=== PATIENT | male | born 1985 | race Caucasian/White ===

== ENCOUNTER 2016-10-11 17:07 | Emergency (ER) | payer BC ==
[2016-10-11 17:31] VITALS: BP 173/99
[2016-10-11] MEDS ORDERED: Ketorolac 30 MG/ML SDV IVPUSH ONE (17:36)
[2016-10-11] MEDS ORDERED: Pantoprazole 40 MG Vial IVPUSH ONE (17:38)
[2016-10-11] MEDS ORDERED: Ketorolac 60 MG/2 ML SDV IM ONE (19:40)
[2016-10-11] MEDS ORDERED: Pantoprazole 40 MG Tab.CR ONE (19:43)
--- NOTE | 2016-10-11 19:49 | EDM.PDOC ---
ED HISTORY OF PRESENT ILLNESS - General Chief Complaint: Chest Pain Stated Complaint: CHEST PAIN Time Seen by Provider: 10/11/16 17:15 Source: Reports: Patient History Limitations: Reports: No limitations - History of Present Illness INITIAL COMMENTS - FREE TEXT/NARRATIVE: 31 YEARS OLD W Miroslava CAME TO THE ED due to pain at his left ant chest wall when taking a deep breath or when trning his upper body against his lower body. 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 No N/V/D or other medical issues. Symptom Onset Date: 10/03/16 Symptom Onset Time: 05:00 Timing/Duration: Reports: Hour(s):, Intermittent Severity: moderate Location, General: Reports: chest Quality: Reports: Dull Improves with: Reports: Rest Worsens with: Reports: Movement Associated Symptoms: Reports: denies other symptoms - Related Data Allergies/ADRs: Allergies Allergy/AdvReac Type Severity Reaction Status Date / Time No Known Allergies Allergy Verified 01/16/16 00:54 Home Meds: Home Meds Penicillin V Potassium 250 mg PO DAILY 02/06/16 [History] metroNIDAZOLE [Flagyl] 500 mg PO ONETIME 02/06/16 [History] oxyCODONE HCl/Acetaminophen [Percocet 7.5-325 mg Tablet] 1 each PO Q4HR PRN #16 tablet 02/06/16 [Rx] Famotidine [Pepcid] 40 mg PO DAILY #20 tablet 10/11/16 [Rx] Past Medical History - Past Health History Medical/Surgical History: Denies Medical/Surgical History HEENT History: Reports: Other (see below) Other HEENT History: prosthetic L eye Social & Family History - Tobacco Use Smoking Status *Q: Current Every Day Smoker Years of Tobacco use: 15 Packs/Tins Daily: 1 Second Hand Smoke Exposure: Yes - Alcohol Use Days Per Week of Alcohol Use: 3 Number of Drinks Per Day: 3 Total Drinks Per Week: 9 - Recreational Drug Use Recreational Drug Use: No Drug Use in Last 12 Months: No Recreational Drug Type: ED ROS GENERAL - Review of Systems Review Of Systems: See Below Constitutional: Reports: no symptoms HEENT: Reports: No symptoms Respiratory: Reports: No Symptoms Cardiovascular: Reports: No symptoms Endocrine: Reports: no symptoms GI/Abdominal: Reports: Other (epigastric tenderness) : Reports: no symptoms Musculoskeletal: Reports: no symptoms Skin: Reports: no symptoms Neurological: Reports: No Symptoms Psychiatric: Reports: No symptoms Hematologic/Lymphatic: Reports: no symptoms Immunologic: Reports: no symptoms ED EXAM, GENERAL - Physical Exam Exam: See Below Exam Limited By: No limitations General Appearance: alert, WD/WN, mild distress Eye Exam: bilateral eye: normal inspection Ears: normal external exam Ear Exam: bilateral ear: auricle normal Nose: normal inspection, normal mucosa Throat/Mouth: Normal inspection, Normal teeth, Other (poor dentition) Head: atraumatic, normocephalic Neck: normal inspection, supple Respiratory/Chest: no respiratory distress, lungs clear, normal breath sounds, other (tender chst wall) Cardiovascular: normal peripheral pulses, regular rate, rhythm, no edema, no gallop, no JVD, no murmur, no rub Peripheral Pulses: 1+: femoral (L), femoral (R) GI/Abdominal: normal bowel sounds, tender (epigastric) (Male) Exam: Deferred Rectal (Males) Exam: Deferred Back Exam: normal inspection, full range of motion Extremities: normal inspection, normal range of motion, non-tender, no pedal edema Neurological: alert, oriented, CN II-XII intact, normal cognition, normal gait Psychiatric: normal affect, normal mood Skin Exam: Warm, Dry, Intact, Normal color, No rash Lymphatic: no adenopathy EKG INTERPRETATION EKG Date: 10/11/16 Time: 17:20 Rhythm: NSR Rate (beats/min): 71 [place]: normal P-wave: present QRS: normal ST-T: normal QT: normal Comparison: NA - no prior EKG Course - Vital Signs Text/Narrative:: 31 YEARS OLD W Miroslava CAME TO THE ED due to pain at his left ant chest wall when taking a deep breath or when trning his upper body against his lower body. 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 No N/V/D or other medical issues. PE: R chest wall tenderness Imaging: CXR NAD, official report is pending Impression: Pleurisy, gastritis. Tx: Toradol 60 mg I.M. Protronix Reexam: Improved Plan: D/C with instructions. Last Recorded V/S: Last Vital Signs Temp 36.7 C 10/11/16 17:15 Pulse 84 10/11/16 17:15 Resp 18 10/11/16 17:15 BP 173/99 H 10/11/16 17:15 Pulse Ox 99 10/11/16 17:15 - Orders/Labs/Meds Orders: Active Orders 24 hr Category Date Time Status Chest 2V [CR] Stat Exams 10/11/16 17:36 Taken Pantoprazole [ProTONIX] Med 10/12/16 19:40 Once 40 mg PO ONETIME ONE Blood Pressure [OM.PC] Routine Oth 10/11/16 20:00 Ordered Medication Orders Pantoprazole Sodium (Protonix) 40 mg PO ONETIME ONE Stop: 10/12/16 19:41 Last Admin: 10/11/16 19:47 Dose: 40 mg Labs: Laboratory Tests 10/11/16 10/11/16 10/11/16 Range/Units 17:50 17:50 18:05 WBC 7.4 (4.5-12.0) X10-3/uL RBC 5.11 (4.30-5.75) x10(6)uL Hgb 16.1 H (11.5-15.5) g/dL Hct 47.3 (30.0-51.3) % MCV 92.5 (80-96) fL MCH 31.4 (27.7-33.6) pg MCHC 34.0 (32.2-35.4) g/dL RDW 12.3 (11.5-15.5) % Plt Count 283 (125-369) X10(3)uL MPV 8.3 (7.4-10.4) fL Neut % (Auto) 76.9 (46-82) % Lymph % (Auto) 15.5 (13-37) % Elbert % (Auto) 5.2 (4-12) % Eos % (Auto) 2 (1.0-5.0) % Baso % (Auto) 1 (0-2) % Neut # (Auto) 5.7 (1.6-8.3) # Lymph # (Auto) 1.2 (0.6-5.0) # Elbert # (Auto) 0.4 (0.0-1.3) # Eos # (Auto) 0.1 (0.0-0.8) # Baso # (Auto) 0.0 (0.0-0.2) # Sodium 138 (135-145) mmol/L Potassium 3.6 (3.5-5.3) mmol/L Chloride 104 (100-110) mmol/L Carbon Dioxide 27 (23-29) mmol/L BUN 14 (5-20) mg/dL Creatinine 0.7 (0.6-1.3) mg/dL Est Cr Clr Drug Dosing 169.37 mL/min Estimated GFR (MDRD) > 60 (>60) BUN/Creatinine Ratio 20.0 (9-20) Glucose 156 H (80-116) mg/dL Calcium 9.3 (8.6-10.2) mg/dL Urine Color (YELLOW) Urine Appearance (CLEAR) Urine pH (5.0-6.5) Ur Specific [place] (1.010-1.025) Urine Protein (NEGATIVE) mg/dL Urine Glucose (UA) (NEGATIVE) mg/dL Urine Ketones (NEGATIVE) mg/dL Urine Occult Blood (NEGATIVE) Urine Nitrite (NEGATIVE) Urine Bilirubin (NEGATIVE) Urine Urobilinogen (NEGATIVE) mg/dL Ur Leukocyte Esterase (NEGATIVE) Urine RBC (0) Urine WBC (0) Ur Squamous Epith Cells (NS,R,O) Urine Bacteria (NS) Urine Mucus (NS) Urine Opiates Screen Negative (NEGATIVE) Ur Oxycodone Screen Negative (NEGATIVE) Ur Propoxyphene Screen Negative (NEGATIVE) Ur Barbituates Screen Negative (NEGATIVE) Ur Tricyclics Screen Negative (NEGATIVE) Ur Phencyclidine Scrn Negative (NEGATIVE) Ur Amphetamine Screen Negative (NEGATIVE) Urine MDMA Screen Negative (NEGATIVE) U Benzodiazepines Scrn Negative (NEGATIVE) U Cocaine Metab Screen Negative (NEGATIVE) U Marijuana (THC) Screen Negative (NEGATIVE) 10/11/16 Range/Units 18:05 WBC (4.5-12.0) X10-3/uL RBC (4.30-5.75) x10(6)uL Hgb (11.5-15.5) g/dL Hct (30.0-51.3) % MCV (80-96) fL MCH (27.7-33.6) pg MCHC (32.2-35.4) g/dL RDW (11.5-15.5) % Plt Count (125-369) X10(3)uL MPV (7.4-10.4) fL Neut % (Auto) (46-82) % Lymph % (Auto) (13-37) % Elbert % (Auto) (4-12) % Eos % (Auto) (1.0-5.0) % Baso % (Auto) (0-2) % Neut # (Auto) (1.6-8.3) # Lymph # (Auto) (0.6-5.0) # Elbert # (Auto) (0.0-1.3) # Eos # (Auto) (0.0-0.8) # Baso # (Auto) (0.0-0.2) # Sodium (135-145) mmol/L Potassium (3.5-5.3) mmol/L Chloride (100-110) mmol/L Carbon Dioxide (23-29) mmol/L BUN (5-20) mg/dL Creatinine (0.6-1.3) mg/dL Est Cr Clr Drug Dosing mL/min Estimated GFR (MDRD) (>60) BUN/Creatinine Ratio (9-20) Glucose (80-116) mg/dL Calcium (8.6-10.2) mg/dL Urine Color Yellow (YELLOW) Urine Appearance Clear (CLEAR) Urine pH 6.0 (5.0-6.5) Ur Specific [place] 1.025 (1.010-1.025) Urine Protein Negative (NEGATIVE) mg/dL Urine Glucose (UA) Normal (NEGATIVE) mg/dL Urine Ketones 15 H (NEGATIVE) mg/dL Urine Occult Blood Negative (NEGATIVE) Urine Nitrite Negative (NEGATIVE) Urine Bilirubin Small H (NEGATIVE) Urine Urobilinogen 1 H (NEGATIVE) mg/dL Ur Leukocyte Esterase Negative (NEGATIVE) Urine RBC 0-5 (0) Urine WBC 0-5 (0) Ur Squamous Epith Cells Rare (NS,R,O) Urine Bacteria Rare H (NS) Urine Mucus Many H (NS) Urine Opiates Screen (NEGATIVE) Ur Oxycodone Screen (NEGATIVE) Ur Propoxyphene Screen (NEGATIVE) Ur Barbituates Screen (NEGATIVE) Ur Tricyclics Screen (NEGATIVE) Ur Phencyclidine Scrn (NEGATIVE) Ur Amphetamine Screen (NEGATIVE) Urine MDMA Screen (NEGATIVE) U Benzodiazepines Scrn (NEGATIVE) U Cocaine Metab Screen (NEGATIVE) U Marijuana (THC) Screen (NEGATIVE) Meds: Medications Generic Name Dose Route Start Last Admin Trade Name Freq PRN Reason Stop Dose Admin Pantoprazole Sodium 40 mg 10/12/16 19:40 10/11/16 19:47 Protonix PO 10/12/16 19:41 40 mg ONETIME ONE Administration Discontinued Medications Generic Name Dose Route Start Last Admin Trade Name Kadeem PRN Reason Stop Dose Admin Ketorolac Tromethamine 30 mg 10/11/16 17:36 10/11/16 19:45 Toradol IVPUSH 10/11/16 17:37 Not Given ONETIME ONE Ketorolac Tromethamine 60 mg 10/11/16 19:40 10/11/16 19:46 Toradol IM 10/11/16 19:41 60 mg ONETIME ONE Administration Pantoprazole Sodium 40 mg 10/11/16 17:38 10/11/16 19:45 Protonix Iv IVPUSH 10/11/16 17:39 Not Given ONETIME ONE Pantoprazole Sodium Confirm 10/11/16 19:43 Protonix Administered 10/11/16 19:44 Dose 40 mg .ROUTE .STK-MED ONE Departure - Departure Time of Disposition: 19:57 Disposition: Home, Self-Care 01 Condition: good Clinical Impression: Pleurisy without effusion Gastritis Qualifiers: Gastritis type: unspecified gastritis Chronicity: unspecified Gastritis bleeding: without bleeding Qualified Code(s): K29.70 - Gastritis, unspecified, without bleeding Prescriptions: Famotidine [Pepcid] 40 mg PO DAILY #20 tablet Referrals: Surinder Burkett MD [Primary Care Provider] - Forms: ED Department Discharge Additional Instructions: Please take Motrin with food, pepcid as recommended. Please f/u, come back if your symptoms get worse acutely. - My Orders Last 24 Hours: My Active Orders 10/11/16 17:36 Chest 2V [CR] Stat 10/11/16 20:00 Blood Pressure [OM.PC] Routine 10/12/16 19:40 Pantoprazole [ProTONIX] 40 mg PO ONETIME ONE - Assessment/Plan Last 24 Hours: My Active Orders 10/11/16 17:36 Chest 2V [CR] Stat 10/11/16 20:00 Blood Pressure [OM.PC] Routine 10/12/16 19:40 Pantoprazole [ProTONIX] 40 mg PO ONETIME ONE
--- NOTE | 2016-10-12 11:51 | CR ---
INDICATION: Chest pain. CHEST: Two PA views and a lateral view of the chest 10/11/2016 were compared with 08/13/2011, revealing the heart, mediastinum, and bony thorax to be unremarkable, except to note a minimal dextroconcave scoliosis of the lower middle thoracic spine. The diaphragm leaves are again noted to be slightly flattened on the lateral view, raising question of a degree of obstructive airway disease. The heart size and shape appears to be normal. An active infiltrate or effusion was not seen. Overlying snaps are noted. IMPRESSION: 1. No acute process. 2. Minimal scoliosis. 3. Correlate clinically as to the possibility of obstructive airway disease. MTDD
[2016-10-12] MEDS ORDERED: Pantoprazole 40 MG Tab.CR PO ONE (19:40)
== END 2016-10-11 20:20 | disposition home or self-care (01) ==
LOC: FB.ED 17:07
DX: R09.1 Pleurisy (principal); K29.70 Gastritis, unspecified, without bleeding; Z97.0 Presence of artificial eye; Z79.2 Long term (current) use of antibiotics; Z79.899 Other long term (current) drug therapy; F17.210 Nicotine dependence, cigarettes, uncomplicated
CPT/HCPCS: 36415; 71020; 80048; 80305; 81001; 85025; 96372; 99285; A9270; J1885

== ENCOUNTER 2016-11-03 15:52 | Emergency (ER) | payer BC ==
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
[2016-11-03 16:29] VITALS: BP 138/89
== END 2016-11-03 16:25 | disposition home or self-care (01) ==
LOC: FB.ED 15:52
DX: K02.9 Dental caries, unspecified (principal); F17.210 Nicotine dependence, cigarettes, uncomplicated
CPT/HCPCS: 99282

== ENCOUNTER 2017-02-09 23:13 | Emergency (ER) | payer BC ==
[2017-02-09] MEDS ORDERED: Acetaminophen/oxyCODONE 325-5 MG Tab PO ONE (23:32)
[2017-02-09] MEDS ORDERED: Ketorolac 60 MG/2 ML SDV IM ONE (23:32)
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
[2017-02-09] MEDS ORDERED: Acetaminophen/HYDROcodone 325-5 MG Tab PO ONE (23:57)
[2017-02-10 00:07] VITALS: BP 130/87
--- NOTE | 2017-02-10 11:31 | CR ---
INDICATION: Knee injury with effusion. LEFT KNEE: Three views of the left knee revealed no definite fracture site or dislocation. There is slight prominence at the suprapatellar bursa, raising question of a knee joint effusion. However, this is not a definite finding and should be correlated clinically. No other bone or joint abnormality was suggested. IMPRESSION: 1. No acute fracture or dislocation. 2. Suggestion of a knee joint effusion - correlate clinically. 3. If soft tissue injury is suspected clinically, MRI may be helpful. MTDD
== END 2017-02-10 00:05 | disposition home or self-care (01) ==
LOC: FB.ED 23:13
DX: M23.92 Unspecified internal derangement of left knee (principal); F17.210 Nicotine dependence, cigarettes, uncomplicated
CPT/HCPCS: 73562; 99284; A9270; J1885

== ENCOUNTER 2017-02-15 20:35 | Emergency (ER) | payer BC ==
[2017-02-15 21:38] VITALS: BP 135/85
[2017-02-15] MEDS ORDERED: Acetaminophen/HYDROcodone 325-5 MG Tab PO ONE (21:40)
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
== END 2017-02-15 21:37 | disposition home or self-care (01) ==
LOC: FB.ED 20:35
DX: S89.92XA Unspecified injury of left lower leg, initial encounter (principal); X58.XXXA Exposure to other specified factors, initial encounter
CPT/HCPCS: 99283; A9270

== ENCOUNTER 2017-06-24 18:42 | Emergency (ER) | payer BC ==
[2017-06-24 19:04] VITALS: BP 138/94
[2017-06-24] MEDS ORDERED: Ketorolac 60 MG/2 ML SDV IM ONE (19:25)
[2017-06-24] MEDS ORDERED: Cyclobenzaprine 10 MG Tab PO ONE (19:26)
--- NOTE | 2017-06-24 20:25 | EDM.PDOC ---
ED HPI GENERAL MEDICAL PROBLEM - General Chief Complaint: Back Pain or Injury Stated Complaint: BACK PAIN Time Seen by Provider: 06/24/17 19:10 Source of Information: Reports: Patient History Limitations: Reports: No Limitations - History of Present Illness INITIAL COMMENTS - FREE TEXT/NARRATIVE: c/o mid back pain x 24h not working, on short term disability, has gotten 6 Rx for Percocet 5/325 in past 5w as per [place], total of 136 tabs or 4 tabs/d says he uses them "sparingly" not taking other meds has soreness in his mid back, b/l, tight, radiates down to iliac crest, increase with bending, no injury, does walk rather stiffly d/t knee issues (ACL repair 2m ago, other ACL repaired 1y ago) Lower Back Pain Score (Numeric/FACES): 8 - Related Data Allergies Allergy/AdvReac Type Severity Reaction Status Date / Time No Known Allergies Allergy Verified 02/15/17 20:52 Home Meds: Home Meds Acetaminophen/HYDROcodone [Burt 325-5 MG] 1 - 2 tab PO Q6H PRN #14 tab [Rx] Cyclobenzaprine HCl 10 mg PO TID PRN #15 tablet 06/24/17 [Rx] Past Medical History - Past Health History Medical/Surgical History: Denies Medical/Surgical History HEENT History: Reports: Other (See Below) Other HEENT History: prosthetic L eye Respiratory History: Reports: Other (See Below) Other Respiratory History: smokes Other Musculoskeletal History: broken bones, wrist, toes, ankl, ACL tear - Infectious Disease History Infectious Disease History: Reports: Chicken Pox - Past Surgical History Musculoskeletal Surgical History: Reports: Arthroscopic Knee, Other (See Below) Other Musculoskeletal Surgeries/Procedures:: acl repair Social & Family History - Family History Family Medical History: Noncontributory - Tobacco Use Smoking Status *Q: Current Every Day Smoker Years of Tobacco use: 6 Packs/Tins Daily: 1 Second Hand Smoke Exposure: Yes - Caffeine Use Caffeine Use: Reports: Coffee, Energy Drinks Caffeine Use Comment: 2 cups coffee, 4-6 energy drinks/day - Alcohol Use Days Per Week of Alcohol Use: 2 Number of Drinks Per Day: 2 Total Drinks Per Week: 4 Date of Last Drink: 06/23/17 Time of Last Drink: 18:00 - Recreational Drug Use Recreational Drug Use: No Drug Use in Last 12 Months: No Recreational Drug Type: ED ROS GENERAL - Review of Systems Review Of Systems: See Below Constitutional: Reports: No Symptoms HEENT: Reports: No Symptoms Respiratory: Reports: No Symptoms Cardiovascular: Reports: No Symptoms Endocrine: Reports: No Symptoms GI/Abdominal: Reports: No Symptoms : Reports: No Symptoms Musculoskeletal: Reports: Back Pain Skin: Reports: No Symptoms Neurological: Reports: No Symptoms Psychiatric: Reports: No Symptoms Hematologic/Lymphatic: Reports: No Symptoms Immunologic: Reports: No Symptoms ED EXAM,LOWER BACK PAIN/INJURY - Physical Exam Exam: See Below Exam Limited By: No Limitations General Appearance: Alert, WD/WN, No Apparent Distress Back Exam: Other (bending and twisting while changing diaper on his child, no PT , no spasm of mid back at the moment) Course - Vital Signs Last Recorded V/S: Last Vital Signs Temp 36.8 C 06/24/17 19:02 Pulse 74 06/24/17 19:02 Resp 17 06/24/17 19:02 BP 138/94 H 06/24/17 19:02 Pulse Ox 99 06/24/17 19:02 - Orders/Labs/Meds Meds: Medications Discontinued Medications Generic Name Dose Route Start Last Admin Trade Name Freq PRN Reason Stop Dose Admin Cyclobenzaprine HCl 10 mg 06/24/17 19:26 06/24/17 19:37 Flexeril PO 06/24/17 19:27 10 mg ONETIME ONE Administration Ketorolac Tromethamine 60 mg 06/24/17 19:25 06/24/17 19:36 Toradol IM 06/24/17 19:26 60 mg ONETIME ONE Administration Departure - Departure Time of Disposition: 20:22 Disposition: Home, Self-Care 01 Condition: Good Clinical Impression: Thoracic back sprain - Discharge Information Prescriptions: Cyclobenzaprine HCl 10 mg PO TID PRN #15 tablet PRN Reason: Spasms Instructions: Muscle Strain, [id number], Back Injury Prevention, [id number] Referrals: Surinder Burkett MD [Primary Care Provider] - Additional Instructions: For inflammation, take ibuprofen 200 mg 3 tabs 4 times a day for 7 days. For spasm, as needed, take cyclobenzaprine 10 mg 1 tab up to 3 times a day. Use ice for 10 minutes 4 times a day for 2 days. See your doctor in 4-5 days.
== END 2017-06-24 20:33 | disposition home or self-care (01) ==
LOC: FB.ED 18:42
DX: S23.3XXA Sprain of ligaments of thoracic spine, initial encounter (principal); F17.210 Nicotine dependence, cigarettes, uncomplicated; X58.XXXA Exposure to other specified factors, initial encounter
CPT/HCPCS: 96372; 99283; A9270; J1885

== ENCOUNTER 2017-07-31 16:23 | Emergency (ER) | payer BC ==
[2017-07-31] MEDS ORDERED: Ketorolac 60 MG/2 ML SDV IM ONE (16:54)
[2017-07-31] MEDS ORDERED: HYDROmorphone 2 MG/ML SDV IM ONE (17:45)
[2017-07-31] MEDS ORDERED: Acetaminophen/HYDROcodone 325-5 MG Tab PO ONE (18:20)
[2017-07-31 18:33] VITALS: BP 136/83
--- NOTE | 2017-08-02 07:07 | ER ---
DATE SEEN: 07/31/2017 Dilaudid was not given. The patient was sent home with 8 tablets of Vicodin. Follow up with his doctor, next week. Use ice, braces, and crutches. Increase activity as tolerated. /[id number] ZAYNAB/EARNEST
--- NOTE | 2017-08-02 09:14 | ER ---
DATE SEEN: 07/31/2017 TIME SEEN: The patient was seen at 1725 hours. HISTORY OF PRESENT ILLNESS: This 32-year-old has had previous bilateral ACL repairs of his knees, slipped on the ice and has pain in his knee left with mild swelling. He caught himself when he fell. He did not hurt his upper extremities when he fell, did not fall onto his knees i.e. experience traumatic soft tissue contusion to his lower extremities. His leg went out from under him. He has previous history of dental abscesses, pleurisy, dental caries, and bilateral knee surgery. The patient hurt his knee at 1030 hours this morning. SOCIAL HISTORY: The patient smokes. CURRENT MEDICATIONS: None. REVIEW OF SYSTEMS: Negative except for his poor dental hygiene. No cardiorespiratory or GI complaints or other musculoskeletal complaints. PHYSICAL EXAMINATION: VITAL SIGNS: Blood pressure 144/87, heart rate 91, respirations 18, oxygen saturation 99%, and temperature 36.7 degrees centigrade. BMI 29.2 kg/m2. HEENT: PERRLA intact. Pharynx without abnormality, except for some carious teeth. NECK: Without bruits. LUNGS: Clear without rales, rhonchi, or wheezes. CHEST: No chest wall tenderness. HEART: S1, S2. No irregular rate and rhythm. ABDOMEN: Soft. No guarding. No abdominal discomfort. MUSCULOSKELETAL: Left knee and right knee both have scars from ACL repair and scars on the anterior tibial surface. Mild effusion of left knee. [id number]-[id number] joint line tenderness medially and laterally. Drawer sign negative. No fall away, drawer sign anteriorly or posteriorly. Ankles without abnormality. DIAGNOSTIC STUDIES: X-ray does not reveal fracture, but it has bilateral anchor pins noted in his femur and a button on the surface of the superior tibial tuberosity. It is indeterminate if this is synthetic or is a natural tendon. I believe it is natural reimplanted ACL tendons. He has less discomfort in the right knee. ASSESSMENT: I doubt he has ACL tear, but he has pain in his knee with effusion. PLAN: Use crutches and his brace, he has those both at home. Twelve tablets of hydrocodone 5/325. He received 1 mg of Dilaudid IM. Initially, it was Toradol, did not get relief, so he was given Dilaudid. Follow up with his doctor in a week or earlier if worse. Most likely, he will need an MRI to determine the status of his knee. /[id number] ZAYNAB/EARNEST IDSLA
--- NOTE | 2017-08-02 11:40 | CR ---
INDICATION: Fall, pain. LEFT HIP: Frontal and lateral views of the left hip revealed no evidence of a fracture, dislocation, or other definite acute bone or joint abnormality. There is noted some very minimal degenerative change at the hip joint with hypertrophic lipping very minimally off the femoral joint surface. IMPRESSION: 1. No acute fracture or dislocation. 2. Very minimal degenerative changes - osteoarthritis. MTDD
--- NOTE | 2017-08-02 11:41 | CR ---
INDICATION: Slipped and fell on ice, general knee pain. ACL repair April 2017. LEFT KNEE: Three views of the left knee were obtained and revealed evidence of an ACL repair. A fracture, dislocation, or other definite bone or joint abnormality was not identified. However, there is slight prominence at the suprapatellar bursa, raising question of a minimal knee joint effusion. This should be correlated clinically. MTDD
== END 2017-07-31 18:30 | disposition home or self-care (01) ==
LOC: FB.ED 16:23
DX: M25.462 Effusion, left knee (principal); M25.562 Pain in left knee; F17.200 Nicotine dependence, unspecified, uncomplicated; W00.0XXA Fall on same level due to ice and snow, initial encounter; Z98.890 Other specified postprocedural states
CPT/HCPCS: 73502-LT; 73562-LT; 96372; 99283; A9270-GY; J1885

== ENCOUNTER 2018-02-14 05:42 | Emergency (ER) | payer BC ==
[2018-02-14] MEDS ORDERED: Amoxicillin 500 MG Cap PO ONE (06:11)
[2018-02-14] MEDS ORDERED: Acetaminophen/HYDROcodone 325-5 MG Tab PO ONE (06:11)
--- NOTE | 2018-02-14 06:22 | EDM.PDOC ---
ED HPI GENERAL MEDICAL PROBLEM - General Chief Complaint: ENT Problem Stated Complaint: TOOTHACHE Time Seen by Provider: 02/14/18 06:07 Source of Information: Reports: Patient History Limitations: Reports: No Limitations - History of Present Illness INITIAL COMMENTS - FREE TEXT/NARRATIVE: Aguila is a 32-year-old male has not taken care of his teeth. He is smoker. He has marked pain of tooth #8. Most of the teeth are almost completely gone with significant enamel erosion. 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 Pain Score (Numeric/FACES): 10 - Related Data Allergies Allergy/AdvReac Type Severity Reaction Status Date / Time No Known Allergies Allergy Verified 02/14/18 05:55 Home Meds: Home Meds Hydrocodone/Acetaminophen [Hydrocodon-Acetaminophen 5-325] 1 each PO Q6HR PRN # 10 tablet 07/31/17 [Rx] Amoxicillin [Amoxil] 875 mg PO Q12HR #20 tab 02/14/18 [Rx] Past Medical History - Past Health History Medical/Surgical History: Denies Medical/Surgical History HEENT History: Reports: Other (See Below) Other HEENT History: prosthetic L eye Respiratory History: Reports: Other (See Below) Other Respiratory History: smokes Gastrointestinal History: Reports: GERD Musculoskeletal History: Reports: Back Pain, Chronic, Fracture Other Musculoskeletal History: R & L toes, bilat ankle fx , bilat ACL tear Neurological History: Reports: Concussion - Infectious Disease History Infectious Disease History: Reports: Chicken Pox - Past Surgical History Head Surgeries/Procedures: Reports: None HEENT Surgical History: Reports: Other (See Below) Other HEENT Surgeries/Procedures: 3 surgery to L eye after injury GI Surgical History: Reports: None Musculoskeletal Surgical History: Reports: Arthroscopic Knee, Other (See Below) Other Musculoskeletal Surgeries/Procedures:: bilat ACL repair Social & Family History - Family History Family Medical History: Noncontributory - Caffeine Use Caffeine Use: Reports: Coffee, Energy Drinks, Soda Caffeine Use Comment: 2 cups coffee, 4-6 energy drinks/day ED ROS ENT - Review of Systems Review Of Systems: See Below Constitutional: Reports: No Symptoms HEENT: Reports: Dental Pain Respiratory: Reports: No Symptoms Cardiovascular: Reports: No Symptoms Endocrine: Reports: No Symptoms GI/Abdominal: Reports: No Symptoms : Reports: No Symptoms Musculoskeletal: Reports: No Symptoms Skin: Reports: No Symptoms Neurological: Reports: Headache Psychiatric: Reports: No Symptoms Hematologic/Lymphatic: Reports: No Symptoms Immunologic: Reports: No Symptoms ED EXAM, ENT - Physical Exam Exam: See Below Text/Narrative:: The patient has marked pain. He is well muscled well-nourished male in marked discomfort and his hangs his head had because he has so much pain from #8 tooth Exam Limited By: No Limitations General Appearance: Alert, Severe Distress Eye Exam: Bilateral Eye: Normal Inspection Mouth/Throat: Other (Terrible dental care with marked enamel erosion and almost loss of 75% of his teeth from poor dentition without adequate dental care ) Head: Atraumatic, Normocephalic Neck: Normal Inspection, Supple Respiratory/Chest: No Respiratory Distress, Lungs Clear, Normal Breath Sounds, Chest Non-Tender GI/Abdominal: Normal Bowel Sounds (Male) Exam: Deferred Rectal (Males) Exam: Deferred Back: Normal Inspection Psychiatric: Normal Affect Skin: Warm, Dry, Intact, Normal Color Lymphatic: No Adenopathy Course - Vital Signs Last Recorded V/S: Last Vital Signs Temp 36.4 C 02/14/18 05:56 Pulse 80 02/14/18 05:56 Resp 18 02/14/18 05:56 BP 149/113 H 02/14/18 05:56 Pulse Ox Departure - Departure Time of Disposition: 06:20 (Severe dental pain) Disposition: Home, Self-Care 01 Condition: Poor Clinical Impression: Periapical abscess without sinus tract, Pain, dental, Dental abscess, Dental caries - Discharge Information *PRESCRIPTION DRUG MONITORING PROGRAM REVIEWED*: No *COPY OF PRESCRIPTION DRUG MONITORING REPORT IN PATIENT ALISHA: No Prescriptions: Amoxicillin [Amoxil] 875 mg PO Q12HR #20 tab Instructions: Dental Abscess, [id number] Referrals: Surinder Burkett MD [Primary Care Provider] - Forms: ED Department Discharge Additional Instructions: you have 8 tab of hydrocodone for pain 1-2 tab every 6 hours for pain [facility] amoxil 500 mg 1 tab thre times a day for the infection of your teeth call the [facility] for an apointment
[2018-02-14 06:50] VITALS: BP 144/111
== END 2018-02-14 06:42 | disposition home or self-care (01) ==
LOC: FB.ED 05:42
DX: K04.7 Periapical abscess without sinus (principal); K02.9 Dental caries, unspecified; Z79.899 Other long term (current) drug therapy
CPT/HCPCS: 99282; A9270-GY

== ENCOUNTER 2018-09-01 11:09 | Emergency (ER) | payer BC, MEDICAID ==
--- NOTE | 2018-09-01 12:04 | EDM.PDOC ---
ED HPI GENERAL MEDICAL PROBLEM - General Chief Complaint: General Stated Complaint: FACIAL SWELLING AND HIGH BLOOD PRESSURE Time Seen by Provider: 09/01/18 11:45 Source of Information: Reports: Patient, Family History Limitations: Reports: No Limitations - History of Present Illness INITIAL COMMENTS - FREE TEXT/NARRATIVE: Aguila [facility] into [facility] ED with persistent swelling of L face and dental pain affecting infected caries of L maxillary ridge. He was seen in Clinic yesterday and dispensed Augmentin CR and Toradol 30 mg IM and advised to see a DDS. He has not made a DDS appt, and is seeking managment. He has not had dental x rays performed. His last dental appt was in [place], [place] 2 years ago. Left face Pain Score (Numeric/FACES): 3 - Related Data Allergies Allergy/AdvReac Type Severity Reaction Status Date / Time No Known Allergies Allergy Verified 09/01/18 11:23 Home Meds: Home Meds Amoxicillin/Potassium Clav [Augmentin 875-125 Tablet] 1 each PO BID 09/01/18 [ History] Ketorolac [Toradol] 10 mg PO Q6H PRN 09/01/18 [History] Past Medical History - Past Health History Medical/Surgical History: Denies Medical/Surgical History HEENT History: Reports: Other (See Below) Other HEENT History: prosthetic L eye Respiratory History: Reports: Other (See Below) Other Respiratory History: smokes Gastrointestinal History: Reports: GERD Musculoskeletal History: Reports: Back Pain, Chronic, Fracture Other Musculoskeletal History: R & L toes, bilat ankle fx , bilat ACL tear Neurological History: Reports: Concussion - Infectious Disease History Infectious Disease History: Reports: Chicken Pox - Past Surgical History Head Surgeries/Procedures: Reports: None HEENT Surgical History: Reports: Other (See Below) Other HEENT Surgeries/Procedures: 3 surgery to L eye after injury GI Surgical History: Reports: None Musculoskeletal Surgical History: Reports: Arthroscopic Knee, Other (See Below) Other Musculoskeletal Surgeries/Procedures:: bilat ACL repair Social & Family History - Family History Family Medical History: Noncontributory Psychiatric: Reports: None, Abuse, Victim of, ADD, ADHD, Anxiety, Autism, Bipolar, Depression, Developmental Delay, Eating Disorders, Emotional Problems, Hallucinations, Learning Disability, Mood Swings, OCD, Panic Attack, Psych Hospitalization(s), Psychosis, PTSD, Schizophrenia, Suicide Attempt, Other (See Below) - Tobacco Use Smoking Status *Q: Current Every Day Smoker Years of Tobacco use: 8 Packs/Tins Daily: 1 - Caffeine Use Caffeine Use: Reports: Energy Drinks, Soda Caffeine Use Comment: 2 cups coffee, 4-6 energy drinks/day - Recreational Drug Use Recreational Drug Use: No ED ROS GENERAL - Review of Systems Review Of Systems: See Below Constitutional: Reports: Malaise, Decreased Appetite HEENT: Reports: Dental Pain, Other (L facial swelling) Respiratory: Reports: No Symptoms Cardiovascular: Reports: No Symptoms Endocrine: Reports: No Symptoms GI/Abdominal: Reports: Decreased Appetite : Reports: No Symptoms Musculoskeletal: Reports: No Symptoms Skin: Reports: Erythema (overlying L facial features, partial swelling of L eyelids) Neurological: Reports: No Symptoms Psychiatric: Reports: No Symptoms Hematologic/Lymphatic: Reports: No Symptoms Immunologic: Reports: No Symptoms ED EXAM, GENERAL - Physical Exam Exam: See Below Exam Limited By: No Limitations General Appearance: Alert, WD/WN, No Apparent Distress, Anxious Eye Exam: Bilateral Eye: EOMI, PERRL Ears: Normal External Exam, Normal TMs Nose: Normal Inspection, Normal Mucosa Throat/Mouth: Normal Inspection, Normal Lips, Normal Oropharynx, Other ( multiple caried teeth of maxillary and mandibular ridges, #19,20,21 deeply caried and sensitive) Head: Facial Swelling (left) Neck: Normal Inspection, Supple, Non-Tender, Full Range of Motion Respiratory/Chest: Lungs Clear, Chest Non-Tender Cardiovascular: Regular Rate, Rhythm, No Murmur Back Exam: Normal Inspection Extremities: Normal Inspection Neurological: Alert, Oriented, CN II-XII Intact, Normal Cognition, No Motor/ Sensory Deficits Psychiatric: Normal Affect, Normal Mood Skin Exam: Warm, Dry, Erythema (left facial features) Lymphatic: No Adenopathy Course - Vital Signs Text/Narrative:: Aguila needs to see a DDS or oral surgeon regarding managment, and will contact his DDS this afternoon. He should continue his Augmentin CR as directed. Departure - Departure Time of Disposition: 12:45 Disposition: Home, Self-Care 01 Condition: Fair Clinical Impression: Dental abscess - Discharge Information *PRESCRIPTION DRUG MONITORING PROGRAM REVIEWED*: Not Applicable *COPY OF PRESCRIPTION DRUG MONITORING REPORT IN PATIENT ALISHA: Not Applicable Instructions: Dental Abscess, [id number] Referrals: Surinder Burkett MD [Primary Care Provider] - Forms: ED Department Discharge Additional Instructions: Follow-up with dentist. Continue taking antibiotic. - Problem List & Annotations (1) Dental abscess SNOMED Code(s): 626075254 Code(s): K04.7 - PERIAPICAL ABSCESS WITHOUT SINUS Status: Acute Current Visit: No Annotation/Comment:: Follow up with DDS. - Problem List Review Problem List Initiated/Reviewed/Updated: Yes - Assessment/Plan Plan: Follow up with DDS.
[2018-09-01 14:47] VITALS: BP 143/91
== END 2018-09-01 12:07 | disposition home or self-care (01) ==
LOC: FB.ED 11:09
DX: K04.7 Periapical abscess without sinus (principal); F17.210 Nicotine dependence, cigarettes, uncomplicated
CPT/HCPCS: 99283

== ENCOUNTER 2018-09-26 04:47 | Emergency (ER) | payer SELFPAY ==
[2018-09-26] MEDS ORDERED: Amoxicillin/Clavulanate K 875-125 MG Tab PO ONE (04:57)
[2018-09-26] MEDS ORDERED: Ibuprofen 600 MG Tab PO ONE (04:57)
[2018-09-26] MEDS ORDERED: Acetaminophen/HYDROcodone 325-5 MG Tab PO ONE (04:57)
--- NOTE | 2018-09-26 04:59 | EDM.PDOC ---
ED HPI GENERAL MEDICAL PROBLEM - General Stated Complaint: MIGRAINE,TOOTHACHE Time Seen by Provider: 09/26/18 04:47 Source of Information: Reports: Patient, Family toothache Pain Score (Numeric/FACES): 10 - Related Data Allergies Allergy/AdvReac Type Severity Reaction Status Date / Time No Known Allergies Allergy Verified 09/26/18 04:58 Home Meds: Home Meds Acetaminophen/HYDROcodone [Hoolehua 325-5 MG] 1 tab PO Q4H PRN #3 tablet 09/26/18 [ Rx] Amoxicillin/Potassium Clav [Augmentin 875-125 Tablet] 1 each PO BID #20 tablet 09/26/18 [Rx] Past Medical History - Past Health History Medical/Surgical History: Denies Medical/Surgical History HEENT History: Reports: Other (See Below) Other HEENT History: prosthetic L eye Respiratory History: Reports: Other (See Below) Other Respiratory History: smokes Gastrointestinal History: Reports: GERD Musculoskeletal History: Reports: Back Pain, Chronic, Fracture Other Musculoskeletal History: R & L toes, bilat ankle fx , bilat ACL tear Neurological History: Reports: Concussion - Infectious Disease History Infectious Disease History: Reports: Chicken Pox - Past Surgical History Head Surgeries/Procedures: Reports: None HEENT Surgical History: Reports: Other (See Below) Other HEENT Surgeries/Procedures: 3 surgery to L eye after injury GI Surgical History: Reports: None Musculoskeletal Surgical History: Reports: Arthroscopic Knee, Other (See Below) Other Musculoskeletal Surgeries/Procedures:: bilat ACL repair Social & Family History - Family History Family Medical History: Noncontributory Psychiatric: Reports: None, Abuse, Victim of, ADD, ADHD, Anxiety, Autism, Bipolar, Depression, Developmental Delay, Eating Disorders, Emotional Problems, Hallucinations, Learning Disability, Mood Swings, OCD, Panic Attack, Psych Hospitalization(s), Psychosis, PTSD, Schizophrenia, Suicide Attempt, Other (See Below) - Caffeine Use Caffeine Use: Reports: Energy Drinks, Soda Caffeine Use Comment: 2 cups coffee, 4-6 energy drinks/day Course - Vital Signs Text/Narrative:: Impression: Gingivitis, Toothache Tx: Augmentin, Motrin Hoolehua (1 tabl) Last Recorded V/S: Last Vital Signs Temp 36.4 C 09/26/18 04:47 Pulse 121 H 09/26/18 04:47 Resp 18 09/26/18 04:47 BP 136/86 09/26/18 04:47 Pulse Ox 98 09/26/18 04:47 - Orders/Labs/Meds Meds: Medications Discontinued Medications Generic Name Dose Route Start Last Admin Trade Name Freq PRN Reason Stop Dose Admin Hydrocodone Bitart/Acetaminophen 1 tab 09/26/18 04:57 09/26/18 05:03 Hoolehua 325-5 Mg PO 09/26/18 04:58 1 tab ONETIME ONE Administration Amoxicillin/Clavulanate Potassium 1 tab 09/26/18 04:57 09/26/18 05:03 Augmentin 875 Mg/125 Mg PO 09/26/18 04:58 1 tab ONETIME ONE Administration Ibuprofen 600 mg 09/26/18 04:57 09/26/18 05:03 Motrin PO 09/26/18 04:58 600 mg ONETIME ONE Administration Departure - Departure Time of Disposition: 05:02 Disposition: Home, Self-Care 01 Condition: Good Clinical Impression: Poor dentition, Gingivitis, Toothache - Discharge Information Prescriptions: Acetaminophen/HYDROcodone [Hoolehua 325-5 MG] 1 tab PO Q4H PRN #3 tablet PRN Reason: for severe pain only Amoxicillin/Potassium Clav [Augmentin 875-125 Tablet] 1 each PO BID #20 tablet Instructions: Dental Abscess, Preventive Dental Care, Adult Referrals: Surinder Burkett MD [Primary Care Provider] - Forms: ED Department Discharge Additional Instructions: Please take Motrin for pain. Augmentin as recommended, please f/u with your Dentist/PMD, come back if your symptoms get worse acutely. Please avoid tobacco use.
--- NOTE | 2018-09-26 05:23 | EDM.PDOC ---
ED HPI GENERAL MEDICAL PROBLEM - General Chief Complaint: ENT Problem Stated Complaint: MIGRAINE,TOOTHACHE Time Seen by Provider: 09/26/18 04:47 Source of Information: Reports: Patient, Family History Limitations: Reports: No Limitations - History of Present Illness INITIAL COMMENTS - FREE TEXT/NARRATIVE: 33 y.o.w.m -smoker-came to the ed due to toothache off on for several weeks. No SOB, no CP no other acute med issues. BP 136/86 RR 20 Pulse ox 98% on RA Temp 36.6 pulse 120 Onset Date: 09/14/18 Onset Time: 07:00 Duration: Day(s):, Week(s):, Getting Worse, Intermittent Location: Reports: Face (toothache) Quality: Reports: Burning, Dull, Same as Previous Episode Severity: Moderate Improves with: Reports: Medication Worsens with: Reports: Cold Therapy Context: Reports: Other (poor dental hygiene, tobacco use) Associated Symptoms: Reports: No Other Symptoms toothache Pain Score (Numeric/FACES): 10 - Related Data Allergies Allergy/AdvReac Type Severity Reaction Status Date / Time No Known Allergies Allergy Verified 09/26/18 04:58 Home Meds: Home Meds Amoxicillin/Potassium Clav [Augmentin 875-125 Tablet] 1 each PO BID #20 tablet 09/26/18 [Rx] Past Medical History - Past Health History Medical/Surgical History: Denies Medical/Surgical History HEENT History: Reports: Other (See Below) Other HEENT History: prosthetic L eye Respiratory History: Reports: Other (See Below) Other Respiratory History: smokes Gastrointestinal History: Reports: GERD Musculoskeletal History: Reports: Back Pain, Chronic, Fracture Other Musculoskeletal History: R & L toes, bilat ankle fx , bilat ACL tear Neurological History: Reports: Concussion - Infectious Disease History Infectious Disease History: Reports: Chicken Pox - Past Surgical History Head Surgeries/Procedures: Reports: None HEENT Surgical History: Reports: Other (See Below) Other HEENT Surgeries/Procedures: 3 surgery to L eye after injury GI Surgical History: Reports: None Musculoskeletal Surgical History: Reports: Arthroscopic Knee, Other (See Below) Other Musculoskeletal Surgeries/Procedures:: bilat ACL repair Social & Family History - Family History Family Medical History: Noncontributory Psychiatric: Reports: None, Abuse, Victim of, ADD, ADHD, Anxiety, Autism, Bipolar, Depression, Developmental Delay, Eating Disorders, Emotional Problems, Hallucinations, Learning Disability, Mood Swings, OCD, Panic Attack, Psych Hospitalization(s), Psychosis, PTSD, Schizophrenia, Suicide Attempt, Other (See Below) - Caffeine Use Caffeine Use: Reports: Energy Drinks, Soda Caffeine Use Comment: 2 cups coffee, 4-6 energy drinks/day ED ROS ENT - Review of Systems Review Of Systems: See Below Constitutional: Reports: No Symptoms HEENT: Reports: Dental Pain Respiratory: Reports: No Symptoms Cardiovascular: Reports: No Symptoms Endocrine: Reports: No Symptoms GI/Abdominal: Reports: No Symptoms : Reports: No Symptoms Musculoskeletal: Reports: No Symptoms Skin: Reports: No Symptoms Neurological: Reports: No Symptoms Psychiatric: Reports: No Symptoms Hematologic/Lymphatic: Reports: No Symptoms Immunologic: Reports: No Symptoms ED EXAM, ENT - Physical Exam Exam: See Below Exam Limited By: No Limitations General Appearance: Alert Eye Exam: Bilateral Eye: Normal Inspection Ears: Normal External Exam, Normal Canal Nose: Normal Inspection, Normal Mucousa Mouth/Throat: Normal Lips, Dental Tenderness, Dental Trauma Head: Atraumatic, Normocephalic Neck: Normal Inspection, Supple, Non-Tender Respiratory/Chest: No Respiratory Distress, Lungs Clear, Normal Breath Sounds, No Accessory Muscle Use, Chest Non-Tender Cardiovascular: Normal Peripheral Pulses, Regular Rate, Rhythm, No Edema GI/Abdominal: Normal Bowel Sounds, Soft, Non-Tender, No Organomegaly, No Distention, No Abnormal Bruit, No Mass, Pelvis Stable (Male) Exam: Deferred Rectal (Males) Exam: Deferred Back: Normal Inspection Extremities: Normal Inspection Neurological: Alert, Oriented, CN II-XII Intact Psychiatric: Normal Affect, Normal Mood Skin: Warm, Dry, Intact, Normal Color Lymphatic: No Adenopathy Course - Vital Signs Text/Narrative:: 33 y.o.w.m -smoker-came to the ed due to toothache off on for several weeks. No SOB, no CP no other acute med issues. BP 136/86 RR 20 Pulse ox 98% on RA Temp 36.6 pulse 120 PE: WNWD W M with poor dentition/toothache Impression: Poor dentition/toothache, Gingivitis Tx: Mora, Augmentin, Motrin Reexam: Improved Plan: D/C with instructions Last Recorded V/S: Last Vital Signs Temp 36.4 C 09/26/18 04:47 Pulse 121 H 09/26/18 04:47 Resp 18 09/26/18 04:47 BP 136/86 09/26/18 04:47 Pulse Ox 98 09/26/18 04:47 - Orders/Labs/Meds Meds: Medications Discontinued Medications Generic Name Dose Route Start Last Admin Trade Name Kadeem PRN Reason Stop Dose Admin Hydrocodone Bitart/Acetaminophen 1 tab 09/26/18 04:57 09/26/18 05:03 Mora 325-5 Mg PO 09/26/18 04:58 1 tab ONETIME ONE Administration Amoxicillin/Clavulanate Potassium 1 tab 09/26/18 04:57 09/26/18 05:03 Augmentin 875 Mg/125 Mg PO 09/26/18 04:58 1 tab ONETIME ONE Administration Ibuprofen 600 mg 09/26/18 04:57 09/26/18 05:03 Motrin PO 09/26/18 04:58 600 mg ONETIME ONE Administration Departure - Departure Time of Disposition: 05:24 Disposition: Home, Self-Care 01 Clinical Impression: Poor dentition, Gingivitis, Toothache - Discharge Information Prescriptions: Amoxicillin/Potassium Clav [Augmentin 875-125 Tablet] 1 each PO BID #20 tablet Instructions: Dental Abscess, Preventive Dental Care, Adult Referrals: Surinder Burkett MD [Primary Care Provider] - Forms: ED Department Discharge Additional Instructions: Please take Motrin for pain. Augmentin as recommended, please f/u with your Dentist/PMD, come back if your symptoms get worse acutely. Please avoid tobacco use.
[2018-09-26 05:30] VITALS: BP 121/71
== END 2018-09-26 05:30 | disposition home or self-care (01) ==
LOC: FB.ED 04:47
DX: K05.10 Chronic gingivitis, plaque induced (principal); K08.89 Other specified disorders of teeth and supporting structures
CPT/HCPCS: 99282; A9270-GY

== ENCOUNTER 2022-03-13 11:13 | Emergency (ER) | payer SELFPAY ==
[2022-03-13] MEDS ORDERED: Ampicillin/Sulbactam Na 3 GM in Sodium Chloride 0.9% 100 ML IV ONE (11:39)
[2022-03-13] MEDS ORDERED: Sodium Chloride 0.9% 10 ML Syringe FLUSH PRN (11:40)
[2022-03-13] MEDS ORDERED: Acetaminophen/HYDROcodone 325-5 MG Tab PO ONE (11:50)
[2022-03-13] MEDS ORDERED: Ibuprofen 600 MG Tab PO ONE (13:26)
[2022-03-13 15:14] VITALS: BP 163/115; PULSE 61
== END 2022-03-13 13:50 | disposition home or self-care (01) ==
LOC: FB.ED 11:13
DX: K04.7 Periapical abscess without sinus (principal); F17.210 Nicotine dependence, cigarettes, uncomplicated
CPT/HCPCS: 96365; 99283-25; A9270-GY; J0295; J3490

== ENCOUNTER 2023-03-20 23:58 | Emergency (ER) | payer OTHER ==
[2023-03-21] MEDS ORDERED: Morphine 4 MG/ML VIAL IM ONE (00:53)
[2023-03-21 01:07] VITALS: BP 120/89; PULSE 96
== END 2023-03-21 01:32 | disposition home or self-care (01) ==
LOC: FB.ED 23:58
DX: S01.411A Laceration without foreign body of right cheek and temporomandibular area, initial encounter (principal); S70.01XA Contusion of right hip, initial encounter; F17.210 Nicotine dependence, cigarettes, uncomplicated; V49.50XA Passenger injured in collision with unspecified motor vehicles in traffic accident, initial encounter; Y92.410 Unspecified street and highway as the place of occurrence of the external cause
CPT/HCPCS: 12002; 70450; 73502; 96372; 99284; J2270